=== PATIENT | female | born 1945 | race Caucasian/White ===

== ENCOUNTER → 2017-10-08 | Outpatient (CLI) | payer MEDICARE | LOC: M WHC 14:38 | DX: Z12.31 Encounter for screening mammogram for malignant neoplasm of breast (principal); Z01.419 Encounter for gynecological examination (general) (routine) without abnormal findings (principal); Z78.0 Asymptomatic menopausal state; Z92.29 Personal history of other drug therapy; Z92.89 Personal history of other medical treatment | CPT/HCPCS: 77067 ==

== ENCOUNTER → 2017-12-04 | Outpatient (REF) | payer MEDICARE ==
[2017-12-04 12:11] LABS: APPEARANCE, URINE CLEAR (CLEAR); BACTERIA, URINE AUTO NEGATIVE (NEGATIVE); BILIRUBIN, URINE AUTO NEGATIVE (NEGATIVE); BLOOD, URINE BLOOD NEGATIVE (NEGATIVE); COLOR, URINE YELLOW (YELLOW); GLUCOSE, URINE (UA) AUTO NEGATIVE (NEGATIVE); KETONE, URINE AUTO NEGATIVE (NEGATIVE); LEUKOCYTE ESTERASE, URINE AUTO 1+ (NEGATIVE); MUCUS, URINE SMALL (NEGATIVE); NITRITE, URINE AUTO NEGATIVE (NEGATIVE); PROTEIN, URINE AUTO NEGATIVE (NEGATIVE); RBC, URINE AUTO 4 /HPF (0-3); SPECIFIC GRAVITY URINE AUTO 1.023 (1.002-1.035); SQUAMOUS EPITHELIAL CELL UR AU 0 /HPF (0-6); UROBILINOGEN, URINE AUTO 0.2 mg/dL (0.0-2.0); WBC, URINE AUTO 8 /HPF (0-3)
[2017-12-04 12:37] LABS: ALBUMIN 3.4 GM/DL (3.2-5.2); ALBUMIN/GLOBULIN RATIO 1.21 (1.00-1.93); ALKALINE PHOSPHATASE 100 U/L (45-117); ALT/SGPT 21 U/L (12-78); ANION GAP 6 MEQ/L (8-16); AST/SGOT 14 U/L (7-37); BILIRUBIN,TOTAL 0.6 MG/DL (0.2-1.0); BLOOD UREA NITROGEN 12 MG/DL (7-18); CALCIUM LEVEL 8.2 MG/DL (8.8-10.2); CARBON DIOXIDE LEVEL 29 MEQ/L (21-32); CHLORIDE LEVEL 109 MEQ/L (98-107); CHOLESTEROL LEVEL 223 MG/DL (<200); CHOLESTEROL RISK RATIO 2.934 (<5); GLOMERULAR FILTRATION RATE > 60.0 (>39); GLUCOSE, FASTING 91 MG/DL (70-100); HDL CHOLESTEROL 76 MG/DL (>40); LDL CHOLESTEROL 134.6 MG/DL (<100); NON-HDL-C 147 MG/DL; SODIUM LEVEL 144 MEQ/L (136-145); TOTAL PROTEIN 6.2 GM/DL (6.4-8.2); TRIGLYCERIDES LEVEL 62 MG/DL (<150)
== END ==
LOC: M SFHCPLAZ 10:13
DX: E66.09 Other obesity due to excess calories (principal); Z13.1 Encounter for screening for diabetes mellitus; Z13.220 Encounter for screening for lipoid disorders; R30.0 Dysuria
CPT/HCPCS: 80053

== ENCOUNTER → 2018-01-07 | Outpatient (REF) | payer MEDICARE ==
[2018-01-07 12:27] LABS: APPEARANCE, URINE CLEAR (CLEAR); BACTERIA, URINE AUTO NEGATIVE (NEGATIVE); BILIRUBIN, URINE AUTO NEGATIVE (NEGATIVE); BLOOD, URINE BLOOD NEGATIVE (NEGATIVE); COLOR, URINE YELLOW (YELLOW); GLUCOSE, URINE (UA) AUTO NEGATIVE (NEGATIVE); KETONE, URINE AUTO NEGATIVE (NEGATIVE); LEUKOCYTE ESTERASE, URINE AUTO 2+ (NEGATIVE); NITRITE, URINE AUTO NEGATIVE (NEGATIVE); PROTEIN, URINE AUTO NEGATIVE (NEGATIVE); RBC, URINE AUTO 1 /HPF (0-3); SPECIFIC GRAVITY URINE AUTO 1.027 (1.002-1.035); SQUAMOUS EPITHELIAL CELL UR AU 1 /HPF (0-6); UROBILINOGEN, URINE AUTO 0.2 mg/dL (0.0-2.0); WBC, URINE AUTO 8 /HPF (0-3)
== END ==
LOC: M SFHCPLAZ 10:27
DX: R31.21 Asymptomatic microscopic hematuria (principal)
CPT/HCPCS: 81001

== ENCOUNTER → 2018-01-26 | Outpatient (REF) | payer MEDICARE ==
[2018-01-26 17:27] LABS: APPEARANCE, URINE CLOUDY (CLEAR); BACTERIA, URINE AUTO 2+ (NEGATIVE); BILIRUBIN, URINE AUTO NEGATIVE (NEGATIVE); BLOOD, URINE BLOOD NEGATIVE (NEGATIVE); COLOR, URINE YELLOW (YELLOW); GLUCOSE, URINE (UA) AUTO NEGATIVE (NEGATIVE); KETONE, URINE AUTO NEGATIVE (NEGATIVE); LEUKOCYTE ESTERASE, URINE AUTO 3+ (NEGATIVE); MUCUS, URINE SMALL (NEGATIVE); NITRITE, URINE AUTO NEGATIVE (NEGATIVE); PROTEIN, URINE AUTO NEGATIVE (NEGATIVE); RBC, URINE AUTO 6 /HPF (0-3); SQUAMOUS EPITHELIAL CELL UR AU 5 /HPF (0-6); UROBILINOGEN, URINE AUTO 0.2 mg/dL (0.0-2.0); WBC, URINE AUTO 105 /HPF (0-3)
== END ==
LOC: M SFHCPLAZ 15:43
DX: R35.0 Frequency of micturition (principal)
CPT/HCPCS: 81001

== ENCOUNTER → 2018-02-04 | Outpatient (CLI) | payer MEDICARE | LOC: M RAD 10:41 | DX: Z12.2 Encounter for screening for malignant neoplasm of respiratory organs (principal); Z87.891 Personal history of nicotine dependence | CPT/HCPCS: G0297 ==

== ENCOUNTER → 2018-03-17 | Outpatient (CLI) | payer MEDICARE | LOC: M WHC 12:02 | DX: M81.0 Age-related osteoporosis without current pathological fracture (principal) | CPT/HCPCS: 77080 ==

== ENCOUNTER → 2018-04-01 | Outpatient (REF) | payer MEDICARE | LOC: M LAB REF 13:18 | DX: L72.0 Epidermal cyst (principal) | CPT/HCPCS: 88304 ==

== ENCOUNTER → 2018-04-29 | Outpatient (REF) | payer MEDICARE | LOC: M SFHCPLAZ 12:35 | DX: D23.39 Other benign neoplasm of skin of other parts of face (principal) | CPT/HCPCS: 88305 ==

== ENCOUNTER 2018-09-14 07:55 | Day surgery (SDC) | payer MEDICARE ==
[~2018-09-14] VITALS: Ht 154.9 cm; Wt 88.5 kg
[~2018-09-14 07:55] MED LIST: ALEN35TA37 PO; ASPI81TA85 PO; ATOR1TAB21 PO; DITR5TAB PO; FLUO40CA PO; FOLI400T PO; LIDOCAINE 2% INJ 100 MG/5 ML SDV (FOR ANES.) As Ordered ONE; NS 1,000 ML IV ONE; PROPOFOL 200 MG/20 ML VIAL As Ordered ONE; TRAZ-160 PO; VITA200038 PO; VITA250L PO; VITA400C7 PO
--- NOTE | 2018-09-14 09:23 | ROOR ---
Patient Name: Shayla Valenzuela Procedure Date: 09/14/2018 9:01 AM Date of : 1945 Age: 73 Room: [facility] Gender: Female Note Status: Finalized Procedure: Colonoscopy Indications: High risk colon cancer surveillance: Personal history of colonic polyps, Last colonoscopy: July 2015 Providers: Ross ESARS MD Referring MD: Roya Black MD Requesting Provider: Medicines: Monitored Anesthesia Care Complications: No immediate complications. Procedure: Pre-Anesthesia Assessment: - The heart rate, respiratory rate, oxygen saturations, blood pressure, adequacy of pulmonary ventilation, and response to care were monitored throughout the procedure. The Colonoscope was introduced through the anus and advanced to the cecum, identified by appendiceal orifice and ileocecal valve. The colonoscopy was performed without difficulty. The patient tolerated the procedure well. The quality of the bowel preparation was good. Findings: The perianal and digital rectal examinations were normal. Multiple medium-mouthed diverticula with acute angulation was found in the sigmoid colon. Internal hemorrhoids were found during retroflexion. The hemorrhoids were moderate. The exam was otherwise without abnormality on direct and retroflexion views. Impression: - Diverticulosis in the sigmoid colon. - Internal hemorrhoids. - The colon was otherwise normal on direct and retroflexion views. - No specimens collected. Recommendation: - Repeat colonoscopy in 5 years for surveillance based on personal history of previous adenomatous polyps. Ross Sears MD Ross SEARS MD 09/14/2018 9:22:59 AM This report has been signed electronically. Number of Addenda: 0 Note Initiated On: 09/14/2018 9:01 AM Estimated Blood Loss: Estimated blood loss: none.
[2018-09-14 10:23] VITALS: BP 209/99
== END 2018-09-14 10:27 | disposition home or self-care (01) ==
LOC: M OPP 07:55
PROVIDERS: ATTEND Internal Medicine Gastroenterology
DX: K57.30 Diverticulosis of large intestine without perforation or abscess without bleeding (principal); K64.8 Other hemorrhoids; Z86.010 Personal history of colon polyps

== ENCOUNTER → 2018-12-02 | Outpatient (CLI) | payer MEDICARE ==
[~2018-12-02] MED LIST changes: -LIDOCAINE 2% INJ 100 MG/5 ML SDV (FOR ANES.) As Ordered ONE; -NS 1,000 ML IV ONE; -PROPOFOL 200 MG/20 ML VIAL As Ordered ONE
--- NOTE | 2018-12-02 15:55 | REPMRS ---
Patient History The patient states she had a clinical breast exam in 11/2018. No known family history of cancer. Reductions of both breasts, February 04, 2014. Took unspecified hormones for 4 years. 3D TOMOSYNTHESIS WAS PERFORMED. Digital Woman Screen Mammo: December 02, 2018 - Exam #: [id number] Bilateral MLO and CC view(s) were taken. CV view(s) were taken of the right breast. XCCL view(s) were taken of the left breast. Technologist: Mikaela Peralta, Technologist Prior study comparison: October 08, 2017, digital woman screen mammo performed at [facility]. August 28, 2016, digital woman screen mammo performed at [facility]. FINDINGS: There are scattered fibroglandular densities. There has been no change in the appearance of the mammogram from the prior studies. There is a mild amount of residual fibroglandular tissue which is fairly symmetric. There is no interval development of dominant mass, architectural distortion, or clustered microcalcification suggestive of malignancy. Assessment: BI-RADS/ACR category 1 mammogram. Negative Mammogram. Recommendation Routine screening mammogram in 1 year (for women over age 40). This mammogram was interpreted with the aid of an FDA-approved computer-aided dectection system. Electronically Signed By: Baron Yao MD 12/02/18 [id number]
== END ==
LOC: M WHC 14:38
PROVIDERS: ATTEND Nurse Practitioner Women's Health
DX: Z01.419 Encounter for gynecological examination (general) (routine) without abnormal findings (principal); Z12.31 Encounter for screening mammogram for malignant neoplasm of breast; Z92.29 Personal history of other drug therapy; Z98.890 Other specified postprocedural states
CPT/HCPCS: 77063; 77067; G0463

== ENCOUNTER → 2019-02-05 | Outpatient (REF) | payer MEDICARE ==
[~2019-02-05] MED LIST changes: -TRAZ-160 PO; +TRAZ-252 PO
[2019-02-05 12:06] LABS: ALBUMIN 3.7 GM/DL (3.2-5.2); ALT/SGPT 28 U/L (12-78); BILIRUBIN,TOTAL 0.8 MG/DL (0.2-1.0); BLOOD UREA NITROGEN 15 MG/DL (7-18); CARBON DIOXIDE LEVEL 28 MEQ/L (21-32); CHLORIDE LEVEL 106 MEQ/L (98-107); CHOLESTEROL LEVEL 167 MG/DL (<200); CHOLESTEROL RISK RATIO 2.226 (<5); CREATININE FOR GFR 0.81 MG/DL (0.55-1.30); GLOMERULAR FILTRATION RATE > 60.0 (>39); GLUCOSE, FASTING 88 MG/DL (70-100); HDL CHOLESTEROL 75 MG/DL (>40); LDL CHOLESTEROL 79 MG/DL (<100); NON-HDL-C 92 MG/DL; POTASSIUM SERUM 4.4 MEQ/L (3.5-5.1); SODIUM LEVEL 142 MEQ/L (136-145); TOTAL PROTEIN 6.5 GM/DL (6.4-8.2); TRIGLYCERIDES LEVEL 63 MG/DL (<150)
[2019-02-05 12:37] LABS: VITAMIN B12 LEVEL 1059 PG/ML (247-911)
== END ==
LOC: M SFHCPLAZ 10:33
PROVIDERS: ATTEND Family Medicine
DX: E78.2 Mixed hyperlipidemia (principal); E66.09 Other obesity due to excess calories; E55.9 Vitamin D deficiency, unspecified; E53.8 Deficiency of other specified B group vitamins

== ENCOUNTER → 2019-06-01 | Outpatient (REF) | payer MEDICARE ==
[2019-06-01 20:41] LABS: APPEARANCE, URINE HAZY (CLEAR); BACTERIA, URINE AUTO NEGATIVE (NEGATIVE); BILIRUBIN, URINE AUTO NEGATIVE (NEGATIVE); BLOOD, URINE BLOOD 1+ (NEGATIVE); COLOR, URINE YELLOW (YELLOW); GLUCOSE, URINE (UA) AUTO NEGATIVE (NEGATIVE); KETONE, URINE AUTO NEGATIVE (NEGATIVE); LEUKOCYTE ESTERASE, URINE AUTO 2+ (NEGATIVE); MUCUS, URINE SMALL (NEGATIVE); NITRITE, URINE AUTO NEGATIVE (NEGATIVE); PROTEIN, URINE AUTO 1+ mg/dL (NEGATIVE); RBC, URINE AUTO 8 /HPF (0-3); SPECIFIC GRAVITY URINE AUTO 1.013 (1.002-1.035); SQUAMOUS EPITHELIAL CELL UR AU 1 /HPF (0-6); UROBILINOGEN, URINE AUTO 0.2 mg/dL (0.0-2.0); WBC, URINE AUTO 94 /HPF (0-3)
== END ==
LOC: M SFHCPLAZ 19:46
PROVIDERS: ATTEND Family Medicine
DX: N30.01 Acute cystitis with hematuria (principal)
CPT/HCPCS: 81001; 81002; G0463

== ENCOUNTER → 2019-06-08 | Outpatient (CLI) | payer MEDICARE ==
--- NOTE | 2019-06-08 13:20 | REP ---
REASON: Tobacco abuse. COMPARISON: 02/04/2018. As per the protocol only lung window images were sent to the read station for interpretation. There are no new abnormal nodules, mass, or opacities. Subcarinal and right hilar calcifications along with lung granulomatous calcifications are again noted status quo. These are incidental. Grossly, the mediastinum, pulmonary jose manuel, imaged upper abdomen, and imaged osseous structures are unchanged. There are no pleural or pericardial effusions. IMPRESSION: Stable CT lung screening exam as described above. Lung-RADS category 1. Yearly CT screening is recommended as per the revised Fleischner's Society criteria. Electronically Signed by Tristian Rodriguez DO 06/08/2019 02:38 P
== END ==
LOC: M RAD 10:49
PROVIDERS: ATTEND Family Medicine
DX: F17.211 Nicotine dependence, cigarettes, in remission (principal)

== ENCOUNTER → 2020-02-24 | Outpatient (CLI) | payer MEDICARE ==
[~2020-02-24] MED LIST changes: -ALEN35TA37 PO; +ALEN35TA54 PO; -ASPI81TA85 PO; +ASPI81TA86 PO
--- NOTE | 2020-03-06 08:34 | REPMRS ---
Patient History The patient states she had a clinical breast exam in February 2020. No known family history of cancer. Reductions of both breasts, February 04, 2014. Took unspecified hormones for 4 years. Digital Woman Screen Mammo: February 24, 2020 - Exam #: [id number] Bilateral CC and MLO view(s) were taken. Technologist: Christine Lawson Technologist Prior study comparison: December 02, 2018, bilateral digital woman screen mammo performed at [facility]. October 08, 2017, digital woman screen mammo performed at [facility]. August 28, 2016, digital woman screen mammo performed at [facility]. FINDINGS: There are scattered fibroglandular densities. The Volpara volumetric breast density category is:B. There are scattered benign calcifications again noted on the left . There has been no change in the appearance of the mammogram from the prior studies. There is a mild amount of scattered fibroglandular density which is fairly symmetric. There is no interval development of dominant mass, architectural distortion, or grouped microcalcification suggestive of malignancy. 3-D tomosynthesis shows no additional findings. Assessment: BI-RADS/ACR category 2 mammogram. Benign Findings. Recommendation Routine screening mammogram of both breasts in 1 year (for women over age 40). This patient's Lifetime Breast Cancer Risk is estimated at 2.8 %. This mammogram was interpreted with the aid of an FDA-approved computer-aided dectection system. Electronically Signed By: Aleksey Vidal MD 03/06/20 0833
== END ==
LOC: M WHC 11:12
PROVIDERS: ATTEND Nurse Practitioner Women's Health
DX: Z12.31 Encounter for screening mammogram for malignant neoplasm of breast (principal); Z92.29 Personal history of other drug therapy; R92.1 Mammographic calcification found on diagnostic imaging of breast
CPT/HCPCS: 77063; 77067; G0463

== ENCOUNTER → 2020-07-25 | Outpatient (CLI) | payer MEDICARE ==
--- NOTE | 2020-07-25 16:33 | REP ---
INDICATION: H/O NICOTINE DEPENDENCE. COMPARISON: Multiple the latest 06/08/2019 TECHNIQUE: Axial noncontrast images from the thoracic inlet to the upper abdomen using low-dose lung screening technique (LDCT). As per the protocol only lung window images were sent to the read station for interpretation. FINDINGS: There are no new abnormal nodules, masses, or opacities. There is an incidental calcified granuloma in the left lower lobe. There is mild cylindrical bronchiectasis. Grossly the mediastinum and pulmonary jose manuel are unchanged. Grossly the imaged upper abdomen and imaged osseous structures are unchanged. IMPRESSION: Stable lung rads category 1 exam <Electronically signed by Tristian Rodriguez > 07/25/20 [id number]
== END ==
LOC: M RAD 12:49
PROVIDERS: ATTEND Family Medicine
DX: Z12.2 Encounter for screening for malignant neoplasm of respiratory organs (principal); F17.211 Nicotine dependence, cigarettes, in remission

== ENCOUNTER → 2020-12-26 | Outpatient (CLI) | payer MEDICARE ==
[~2020-12-26] MED LIST changes: -FOLI400T PO; +FOLI400T13 PO
--- NOTE | 2020-12-26 10:28 | REP ---
INDICATION: LLQ ABD PAIN ? HERNIA ABD WALL COMPARISON: None. TECHNIQUE: Real time walker scale ultrasound examination using curved array transducer. FINDINGS: Directed ultrasound examination overlying the left lower quadrant at the point of maximal tenderness demonstrates normal subcutaneous tissue. No fluid collection, significant abnormality or defect identified. No evidence for hernia. There is a small 12 x 7 x 7 mm ovoid echogenic focus in the subcutaneous tissue likely representing small benign lipoma. IMPRESSION: Essentially unremarkable examination. Possible small benign lipoma in the subcutaneous fat. No hernia <Electronically signed by Jono Owen > 12/26/20 1023
== END ==
LOC: M RAD 09:59
PROVIDERS: ATTEND Family Medicine
DX: R10.9 Unspecified abdominal pain (principal)

== ENCOUNTER → 2021-02-25 | Outpatient (CLI) | payer MEDICARE ==
[~2021-02-25] MED LIST changes: +D31000TA2 PO; +OMEP1CAP73 PO; +VITA400C53 PO
== END ==
LOC: M LABSMTC 09:08
PROVIDERS: ATTEND Anesthesiology
DX: Z01.812 Encounter for preprocedural laboratory examination (principal); Z20.822 Contact with and (suspected) exposure to COVID-19

== ENCOUNTER → 2021-02-26 | Outpatient (CLI) | payer MEDICARE ==
--- NOTE | 2021-02-26 12:23 | REPMRS ---
Patient History The patient states she had a clinical breast exam in February 2021. Patient is postmenopausal. No known family history of cancer. Reductions of both breasts, February 04, 2014. Reductions of both breasts. Took unspecified hormones for 4 years. Patient states no breast complaints today. Patient has signed MRS History Sheet. Digital Woman Screen Mammo: February 26, 2021 - Exam #: [id number] Bilateral MLO and CC view(s) were taken. CV view(s) were taken of the left breast. Technologist: Mikaela Peralta, Technologist Prior study comparison: February 24, 2020, bilateral digital woman screen mammo performed at [facility]. December 02, 2018, bilateral digital woman screen mammo performed at [facility]. October 08, 2017, digital woman screen mammo performed at [facility]. FINDINGS: The breast tissue is almost entirely fat. The Volpara volumetric breast density category is: A. There has been no change in the appearance of the mammogram from the prior studies. There is no interval development of dominant mass, architectural distortion, or grouped microcalcification typical of malignancy. 3-D tomosynthesis shows no additional findings. Assessment: BI-RADS/ACR category 1 mammogram. Negative Mammogram. Recommendation Routine screening mammogram of both breasts in 1 year (for women over age 40). This patient's [facility] Lifetime Breast Cancer RIsk is estimated at 2.6 %. This mammogram was interpreted with the aid of an FDA-approved computer-aided dectection system. Electronically Signed By: Aleksey Vidal MD 02/26/21 [id number]
== END ==
LOC: M WHC 10:41
PROVIDERS: ATTEND Nurse Practitioner Women's Health
DX: Z12.31 Encounter for screening mammogram for malignant neoplasm of breast (principal); Z78.0 Asymptomatic menopausal state; Z92.29 Personal history of other drug therapy; Z98.890 Other specified postprocedural states
CPT/HCPCS: 77063; 77067; G0463

== ENCOUNTER 2021-03-02 13:50 | Day surgery (SDC) | payer MEDICARE ==
[~2021-03-02] VITALS: Ht 157.5 cm; Wt 97.1 kg
[~2021-03-02 13:50] MED LIST changes: +NS 1,000 ML IV ONE
[2021-03-02] MEDS ORDERED: LIDOCAINE 2% 100MG/5ML SDV (FOR ANES.) As Ordered ONE (14:14)
[2021-03-02] MEDS ORDERED: propofoL 200 MG/20 ML VIAL As Ordered ONE (14:14)
[2021-03-02] MEDS ORDERED: fentaNYL 100 MCG/2 ML INJECTION (J3010) As Ordered ONE (14:14)
[2021-03-02] MEDS ORDERED: LABETALOL 100MG/20ML VIAL As Ordered ONE (15:13)
--- NOTE | 2021-03-02 15:26 | ROOR ---
Patient Name: Shayla Valenzuela Procedure Date: 03/02/2021 3:02 PM Date of : 1945 Age: 75 Room: [facility] Gender: Female Note Status: Finalized Procedure: Upper GI endoscopy Indications: Dysphagia, Heartburn, Abnormal UGI series Providers: Ross Sears MD Referring MD: Roya Black MD Requesting Provider: Medicines: Monitored Anesthesia Care Complications: No immediate complications. Procedure: Pre-Anesthesia Assessment: - The heart rate, respiratory rate, oxygen saturations, blood pressure, adequacy of pulmonary ventilation, and response to care were monitored throughout the procedure. The Endoscope was introduced through the mouth, and advanced to the second part of duodenum. The upper GI endoscopy was accomplished without difficulty. The patient tolerated the procedure well. Findings: A widely patent and non-obstructing Schatzki ring was found at the gastroesophageal junction. A TTS dilator was passed through the scope. Dilation with an 18-19-20 mm balloon dilator was performed to 20 mm. The dilation site was examined and showed no change. Biopsies were taken with a cold forceps for histology. No endoscopic abnormality was evident in the esophagus to explain the patient's complaint of dysphagia. It was decided, however, to proceed with dilation at the cricopharyngeus, of the upper third of the esophagus and of the lower third of the esophagus. A TTS dilator was passed through the scope. Dilation with an 18-19-20 mm balloon dilator was performed to 18 mm. The dilation site was examined and showed no change. Small Hiatal Hernia. The entire examined stomach was normal. The examined duodenum was normal. Impression: - No definite endoscopic esophageal abnormality to explain patient's dysphagia/esophagram appearance of a cervical esophageal web, however it was decided to proceed with dilation of proximal esophagus. Esophagus dilated proximally to 18 mm. - Widely patent and non-obstructing Schatzki ring of dubious significance in the distal esophagus. Esophagus dilated distally to 20 mm. Biopsied for histology and to fracture of ring. - Small Hiatal Hernia. - Normal stomach. - Normal examined duodenum. Recommendation: - Continue present medications. - Observe patient's clinical course. - I anticipate no further need for intervention. Procedure Code(s): --- Professional --- 80706, Esophagogastroduodenoscopy, flexible, transoral; with transendoscopic balloon dilation of esophagus (less than 30 mm diameter) 22524, 59, Esophagogastroduodenoscopy, flexible, transoral; with biopsy, single or multiple Diagnosis Code(s): --- Professional --- R93.3, Abnormal findings on diagnostic imaging of other parts of digestive tract R12, Heartburn K22.2, Esophageal obstruction R13.10, Dysphagia, unspecified CPT copyright 2019 [employer]. All rights reserved. The codes documented in this report are preliminary and upon edge polisher review may be revised to meet current compliance requirements. Ross Sears MD Ross eSars MD 03/02/2021 3:26:04 PM Electronically signed by Ross Sears MD Number of Addenda: 0 Note Initiated On: 03/02/2021 3:02 PM Estimated Blood Loss: Estimated blood loss: none.
[2021-03-02 15:47] VITALS: BP 164/80
== END 2021-03-02 15:48 | disposition home or self-care (01) ==
LOC: M OPP 13:50
PROVIDERS: ATTEND Internal Medicine Gastroenterology
DX: K22.2 Esophageal obstruction (principal); K22.719 Barrett's esophagus with dysplasia, unspecified; R12 Heartburn; R93.3 Abnormal findings on diagnostic imaging of other parts of digestive tract; K21.9 Gastro-esophageal reflux disease without esophagitis; Z79.899 Other long term (current) drug therapy; Z87.891 Personal history of nicotine dependence
CPT/HCPCS: 43239; 43249; 88305; J3010

== ENCOUNTER → 2021-06-11 | Outpatient (CLI) | payer MEDICARE ==
[~2021-06-11] MED LIST changes: -ALEN35TA54 PO; +ALEN35TA56 PO; -NS 1,000 ML IV ONE
[2021-06-11 15:29] LABS: APPEARANCE, URINE CLEAR (CLEAR); BACTERIA, URINE AUTO NEGATIVE (NEGATIVE); BILIRUBIN, URINE AUTO NEGATIVE (NEGATIVE); BLOOD, URINE BLOOD NEGATIVE (NEGATIVE); COLOR, URINE YELLOW (YELLOW); GLUCOSE, URINE (UA) AUTO NEGATIVE (NEGATIVE); KETONE, URINE AUTO NEGATIVE (NEGATIVE); LEUKOCYTE ESTERASE, URINE AUTO NEGATIVE (NEGATIVE); NITRITE, URINE AUTO NEGATIVE (NEGATIVE); PROTEIN, URINE AUTO NEGATIVE (NEGATIVE); RBC, URINE AUTO 0 /HPF (0-3); SPECIFIC GRAVITY URINE AUTO 1.009 (1.002-1.035); SQUAMOUS EPITHELIAL CELL UR AU 1 /HPF (0-6); UROBILINOGEN, URINE AUTO 0.2 mg/dL (0.0-2.0); WBC, URINE AUTO 1 /HPF (0-3)
[2021-06-11 16:01] LABS: ALBUMIN 3.9 GM/DL (3.2-5.2); ALT/SGPT 27 U/L (12-78); BILIRUBIN,TOTAL 0.9 MG/DL (0.2-1.0); BLOOD UREA NITROGEN 14 MG/DL (7-18); CALCIUM LEVEL 9.5 MG/DL (8.8-10.2); CARBON DIOXIDE LEVEL 31 MEQ/L (21-32); CHLORIDE LEVEL 102 MEQ/L (98-107); CREATININE FOR GFR 0.92 MG/DL (0.55-1.30); CREATININE, URINE 86.3 MG/DL; GLOMERULAR FILTRATION RATE > 60.0 (>39); GLUCOSE, FASTING 94 MG/DL (70-100); MALB URINE SIEMENS 5.9 MG/L; MAU/CREAT RATIO 6.8 MCG/MG (0.0-30.0); POTASSIUM SERUM 4.1 MEQ/L (3.5-5.1); SODIUM LEVEL 138 MEQ/L (136-145); TOTAL PROTEIN 7.1 GM/DL (6.4-8.2)
== END ==
LOC: M PLALAB 12:22
PROVIDERS: ATTEND Family Medicine
DX: I10 Essential (primary) hypertension (principal)
CPT/HCPCS: 36415; 80053; 81001; 82043; 84443; G0463

== ENCOUNTER → 2021-06-20 | Outpatient (CLI) | payer MEDICARE ==
[~2021-06-20] MED LIST changes: +ISOVUE-370 76% 100ML VIAL As Ordered ONE
--- NOTE | 2021-06-20 10:40 | REP ---
INDICATION: RENAL CYST. COMPARISON: None TECHNIQUE: Axial precontrast, contrast-enhanced and delayed images of the abdomen using 100 cc Isovue 370 intravenous contrast material with coronal and sagittal reformations. This CT examination was performed using the following dose reduction techniques: Automated exposure control, adjustment of mA and/or kv according to the patient's size, and the use of iterative reconstruction technique. FINDINGS: Kidneys demonstrate simple benign bilateral peripelvic cysts (left greater than right) along with 5 mm left posterior midpole cortical cyst. No urinary tract calcifications, perinephric stranding, hydronephrosis or renal mass lesion identified. Liver includes 1.2 cm left and 9 mm right hepatic cysts. Spleen, pancreas, gallbladder, and bilateral adrenal glands are normal. Visualized enteric system demonstrates small hiatal hernia at the gastroesophageal junction. Atherosclerotic changes to the aorta and vasculature noted without aneurysm. No ascites. No free air. No obvious adenopathy. Skeletal structures demonstrate scoliosis and degenerative changes. Lung bases are clear. IMPRESSION: 1. Benign appearing bilateral peripelvic renal cysts (left greater than right). No further upper urinary tract pathology appreciated. 2. Hiatal hernia. <Electronically signed by Jono Owen > 06/20/21 1037
== END ==
LOC: M RAD 09:38
PROVIDERS: ATTEND Family Medicine
DX: N28.1 Cyst of kidney, acquired (principal)
CPT/HCPCS: 74170; Q9967

== ENCOUNTER → 2021-09-14 | Outpatient (CLI) | payer MEDICARE ==
[~2021-09-14] MED LIST changes: -ISOVUE-370 76% 100ML VIAL As Ordered ONE
== END ==
LOC: M SLEEP 20:00
PROVIDERS: ATTEND Nurse Practitioner Family
DX: G47.33 Obstructive sleep apnea (adult) (pediatric) (principal)

== ENCOUNTER → 2021-10-09 | Outpatient (CLI) | payer MEDICARE | LOC: M RAD 15:28 | PROVIDERS: ATTEND Family Medicine | DX: Z12.2 Encounter for screening for malignant neoplasm of respiratory organs (principal) ==

== ENCOUNTER → 2021-11-08 | Outpatient (CLI) | payer MEDICARE ==
[~2021-11-08] MED LIST changes: -D31000TA2 PO; +VITA100093 PO
== END ==
LOC: M SLEEP 20:00
PROVIDERS: ATTEND Physician Assistant
DX: G47.33 Obstructive sleep apnea (adult) (pediatric) (principal)

== ENCOUNTER → 2021-11-12 | Outpatient (CLI) | payer MEDICARE ==
[2021-11-12 16:13] LABS: ALBUMIN 3.5 GM/DL (3.2-5.2); ALT/SGPT 22 U/L (12-78); BILIRUBIN,TOTAL 0.8 MG/DL (0.2-1.0); BLOOD UREA NITROGEN 17 MG/DL (7-18); CARBON DIOXIDE LEVEL 30 MEQ/L (21-32); CHLORIDE LEVEL 104 MEQ/L (98-107); CHOLESTEROL LEVEL 179 MG/DL (<200); CHOLESTEROL RISK RATIO 2.386 (<5); CREATININE FOR GFR 0.81 MG/DL (0.55-1.30); GLOMERULAR FILTRATION RATE > 60.0 (>39); GLUCOSE, FASTING 87 MG/DL (70-100); HDL CHOLESTEROL 75 MG/DL (>40); LDL CHOLESTEROL 89 MG/DL (<100); NON-HDL-C 104 MG/DL; POTASSIUM SERUM 3.8 MEQ/L (3.5-5.1); SODIUM LEVEL 140 MEQ/L (136-145); TOTAL PROTEIN 6.5 GM/DL (6.4-8.2); TRIGLYCERIDES LEVEL 75 MG/DL (<150)
[2021-11-12 17:15] LABS: VITAMIN B12 LEVEL 625 PG/ML (247-911)
[2021-11-13 12:27] LABS: TOTAL 25(OH) VITAMIN D 38.5 NG/ML (30.0-100.0)
== END ==
LOC: M PLALAB 12:32
PROVIDERS: ATTEND Family Medicine
DX: E78.2 Mixed hyperlipidemia (principal); I10 Essential (primary) hypertension; E55.9 Vitamin D deficiency, unspecified; E53.8 Deficiency of other specified B group vitamins

== ENCOUNTER → 2021-11-20 | Outpatient (CLI) | payer MEDICARE | LOC: M SOG 10:39 | PROVIDERS: ATTEND Orthopaedic Surgery | DX: M25.519 Pain in unspecified shoulder (principal) ==

== ENCOUNTER → 2021-12-13 | Outpatient (CLI) | payer MEDICARE | LOC: M PLAIMG 14:15 | PROVIDERS: ATTEND Orthopaedic Surgery | DX: M67.813 Other specified disorders of tendon, right shoulder (principal); M75.41 Impingement syndrome of right shoulder ==

== ENCOUNTER → 2022-04-08 | Outpatient (CLI) | payer MEDICARE ==
[~2022-04-08] MED LIST changes: +ISOVUE-300 61% 5ML SYRINGE As Ordered ONE; +LIDOCAINE 1% MDV 20ML VIAL As Ordered ONE; +PROHANCE 279.3MG/ML 5ML VIAL As Ordered ONE
== END ==
LOC: M RADPRO 06:42
PROVIDERS: ATTEND Orthopaedic Surgery
DX: M75.111 Incomplete rotator cuff tear or rupture of right shoulder, not specified as traumatic (principal)
CPT/HCPCS: 23350; 73223; 77002; A9576; Q9967

== ENCOUNTER → 2022-06-13 | Outpatient (CLI) | payer MEDICARE ==
[~2022-06-13] MED LIST changes: -ISOVUE-300 61% 5ML SYRINGE As Ordered ONE; -LIDOCAINE 1% MDV 20ML VIAL As Ordered ONE; -PROHANCE 279.3MG/ML 5ML VIAL As Ordered ONE
== END ==
LOC: M WHC 13:05
PROVIDERS: ATTEND Physician Assistant
DX: Z12.31 Encounter for screening mammogram for malignant neoplasm of breast (principal)

== ENCOUNTER → 2022-09-04 | Outpatient (REF) | payer MEDICARE | LOC: M SFHCPLAZ 13:01 | PROVIDERS: ATTEND Physician Assistant | DX: R30.0 Dysuria (principal) ==

== ENCOUNTER → 2022-10-10 | Outpatient (CLI) | payer MEDICARE | LOC: M RAD 10:21 | PROVIDERS: ATTEND Physician Assistant | DX: Z12.2 Encounter for screening for malignant neoplasm of respiratory organs (principal); F17.211 Nicotine dependence, cigarettes, in remission ==

== ENCOUNTER → 2022-11-13 | Outpatient (CLI) | payer MEDICARE | LOC: M PLAIMG 14:49 | PROVIDERS: ATTEND Physician Assistant | DX: M19.072 Primary osteoarthritis, left ankle and foot (principal); M20.12 Hallux valgus (acquired), left foot ==

== ENCOUNTER → 2023-05-19 | Outpatient (CLI) | payer MEDICARE ==
[2023-05-19 14:20] LABS: APPEARANCE, URINE CLEAR (CLEAR); BACTERIA, URINE AUTO NEGATIVE (NEGATIVE); BASO # 0.1 10^3/uL (0.0-0.2); BASO % 1.3 % (0.0-1.0); BILIRUBIN, URINE AUTO NEGATIVE (NEGATIVE); BLOOD, URINE BLOOD NEGATIVE (NEGATIVE); COLOR, URINE YELLOW (YELLOW); EOS # 0.2 10^3/uL (0.0-0.5); EOS % 2.5 % (0.0-3.0); GLUCOSE, URINE (UA) AUTO NEGATIVE (NEGATIVE); HEMATOCRIT 40.4 % (36.0-47.0); HEMOGLOBIN 12.9 g/dl (12.0-15.5); KETONE, URINE AUTO NEGATIVE (NEGATIVE); LEUKOCYTE ESTERASE, URINE AUTO NEGATIVE (NEGATIVE); LYMPH # 1.6 10^3/uL (1.5-5.0); MEAN CORPUSCULAR HEMOGLOBIN 29.5 pg (27.0-33.0); MEAN CORPUSCULAR HGB CONC 31.9 g/dl (32.0-36.5); MEAN CORPUSCULAR VOLUME 92.2 fl (80.0-96.0); MONO # 0.8 10^3/uL (0.0-0.8); MONO % 12.7 % (2.0-8.0); MUCUS, URINE SMALL (NEGATIVE); NEUTROPHILS # 3.7 10^3/uL (1.5-8.5); NEUTROPHILS % 58.2 % (36.0-66.0); NITRITE, URINE AUTO NEGATIVE (NEGATIVE); PLATELET COUNT, AUTOMATED 322 10^3/uL (150-450); PROTEIN, URINE AUTO NEGATIVE (NEGATIVE); RBC, URINE AUTO 0 /HPF (0-3); RED BLOOD COUNT 4.38 10^6/uL (4.00-5.40); SPECIFIC GRAVITY URINE AUTO 1.019 (1.002-1.035); SQUAMOUS EPITHELIAL CELL UR AU 2 /HPF (0-6); WBC, URINE AUTO 0 /HPF (0-3); WHITE BLOOD COUNT 6.3 10^3/uL (4.0-10.0)
[2023-05-19 14:41] LABS: HEMOGLOBIN A1c 5.6 % (4.0-6.0)
[2023-05-19 14:42] LABS: TOTAL 25(OH) VITAMIN D 37.6 NG/ML (20.0-100.0); VITAMIN B12 LEVEL 1725 PG/ML (211-911)
[2023-05-19 14:43] LABS: THYROID STIMULATING HORMONE 1.805 uIU/ML (0.55-4.78)
[2023-05-19 14:44] LABS: ALBUMIN 3.5 G/DL (3.2-5.2); ALKALINE PHOSPHATASE 128 U/L (46-116); ALT/SGPT 20 U/L (7.0-40); AST/SGOT 15 U/L (<34); BILIRUBIN,TOTAL 0.8 MG/DL (0.3-1.2); BLOOD UREA NITROGEN 20 MG/DL (9-23); CALCIUM LEVEL 9.1 MG/DL (8.3-10.6); CARBON DIOXIDE LEVEL 31 MMOL/L (20-31); CHLORIDE LEVEL 103 MMOL/L (98-107); CHOLESTEROL LEVEL 179 MG/DL (<200); CHOLESTEROL RISK RATIO 2.17 (<5); CREATININE FOR GFR 0.86 MG/DL (0.55-1.30); GLOMERULAR FILTRATION RATE > 60.0 (>39); GLUCOSE, FASTING 83 MG/DL (74-106); HDL CHOLESTEROL 82.2 MG/DL (>40); LDL CHOLESTEROL 84.2 MG/DL (<100); NON-HDL-C 96.8 MG/DL; POTASSIUM SERUM 4.6 MMOL/L (3.5-5.1); SODIUM LEVEL 141 MMOL/L (136-145); TOTAL PROTEIN 6.3 G/DL (5.7-8.2); TRIGLYCERIDES LEVEL 63 MG/DL (<150)
[2023-05-19 14:45] LABS: FREE T4 0.96 NG/DL (0.89-1.76)
== END ==
LOC: M PLALAB 10:33
PROVIDERS: ATTEND Physician Assistant
DX: E55.9 Vitamin D deficiency, unspecified (principal); E07.9 Disorder of thyroid, unspecified; E78.00 Pure hypercholesterolemia, unspecified

== ENCOUNTER → 2023-06-12 | Outpatient (CLI) | payer MEDICARE | LOC: M WHC 11:58 | PROVIDERS: ATTEND Physician Assistant | DX: Z12.31 Encounter for screening mammogram for malignant neoplasm of breast (principal); M81.0 Age-related osteoporosis without current pathological fracture ==

== ENCOUNTER → 2023-10-01 | Outpatient (REF) | payer MEDICARE | LOC: M SFHCPLAZ 13:25 | PROVIDERS: ATTEND Student in an Organized Health Care Education/Training Program | DX: N39.0 Urinary tract infection, site not specified (principal) ==

== ENCOUNTER → 2024-03-04 | Outpatient (CLI) | payer MEDICARE | LOC: M RAD 15:30 | PROVIDERS: ATTEND Physician Assistant | DX: Z87.891 Personal history of nicotine dependence (principal) ==

== ENCOUNTER → 2024-04-15 | Outpatient (CLI) | payer MEDICARE | LOC: M RAD 09:42 | PROVIDERS: ATTEND Physician Assistant | DX: F17.211 Nicotine dependence, cigarettes, in remission (principal); Z53.9 Procedure and treatment not carried out, unspecified reason ==

== ENCOUNTER → 2024-05-12 | Outpatient (CLI) | payer MEDICARE | LOC: M PLAIMG 14:55 | PROVIDERS: ATTEND Physician Assistant | DX: M25.562 Pain in left knee (principal) ==

== ENCOUNTER → 2024-05-26 | Outpatient (CLI) | payer MEDICARE ==
[2024-05-26 13:35] LABS: BASO # 0.1 10^3/uL (0.0-0.2); BASO % 1.3 % (0.0-1.0); EOS # 0.1 10^3/uL (0.0-0.5); EOS % 2.2 % (0.0-3.0); HEMATOCRIT 36.5 % (36.0-47.0); HEMOGLOBIN 11.9 g/dl (12.0-15.5); LYMPH # 1.8 10^3/uL (1.5-5.0); LYMPH % 31.6 % (24.0-44.0); MEAN CORPUSCULAR HEMOGLOBIN 29.4 pg (27.0-33.0); MEAN CORPUSCULAR HGB CONC 32.6 g/dl (32.0-36.5); MEAN CORPUSCULAR VOLUME 90.1 fl (80.0-96.0); MONO # 0.8 10^3/uL (0.0-0.8); MONO % 13.6 % (2.0-8.0); NEUTROPHILS # 2.8 10^3/uL (1.5-8.5); NEUTROPHILS % 51.1 % (36.0-66.0); PLATELET COUNT, AUTOMATED 289 10^3/uL (150-450); RED BLOOD COUNT 4.05 10^6/uL (4.00-5.40); WHITE BLOOD COUNT 5.5 10^3/uL (4.0-10.0)
[2024-05-26 13:46] LABS: ERYTHROCYTE SEDIMENTATION RATE 29 mm/hr (0-30)
[2024-05-26 14:06] LABS: ALBUMIN 3.4 G/DL (3.2-5.2); ALKALINE PHOSPHATASE 125 U/L (46-116); ALT/SGPT 16 U/L (7.0-40); AST/SGOT 12 U/L (<34); BILIRUBIN,TOTAL 0.7 MG/DL (0.3-1.2); BLOOD UREA NITROGEN 16 MG/DL (9-23); CALCIUM LEVEL 8.7 MG/DL (8.3-10.6); CARBON DIOXIDE LEVEL 29 MMOL/L (20-31); CHLORIDE LEVEL 107 MMOL/L (98-107); CREATININE FOR GFR 0.84 MG/DL (0.55-1.30); GLOMERULAR FILTRATION RATE > 60.0 (>39); GLUCOSE, FASTING 88 MG/DL (74-106); POTASSIUM SERUM 4.1 MMOL/L (3.5-5.1); SODIUM LEVEL 141 MMOL/L (136-145); TOTAL PROTEIN 6.1 G/DL (5.7-8.2)
== END ==
LOC: M PLALAB 11:09
PROVIDERS: ATTEND Physician Assistant
DX: R79.82 Elevated C-reactive protein (CRP) (principal)

== ENCOUNTER → 2024-07-01 | Outpatient (CLI) | payer MEDICARE | LOC: M PLAIMG 12:17 | PROVIDERS: ATTEND Physician Assistant | DX: M25.562 Pain in left knee (principal) ==

== ENCOUNTER → 2024-07-16 | Outpatient (CLI) | payer MEDICARE | LOC: M RAD 09:23 | PROVIDERS: ATTEND Physician Assistant | DX: K76.9 Liver disease, unspecified (principal) ==

== ENCOUNTER → 2025-05-10 | Outpatient (REF) | payer MEDICARE | LOC: M SFHCPLAZ 13:28 | PROVIDERS: ATTEND Family Medicine | DX: B34.9 Viral infection, unspecified (principal) ==

== ENCOUNTER → 2025-06-08 | Outpatient (REF) | payer MEDICARE ==
[2025-06-08 15:18] LABS: BASO # 0.1 10^3/uL (0.0-0.2); BASO % 1.1 % (0.0-1.0); EOS # 0.1 10^3/uL (0.0-0.5); EOS % 2.3 % (0.0-3.0); LYMPH # 1.7 10^3/uL (1.5-5.0); LYMPH % 29.4 % (24.0-44.0); MONO # 0.7 10^3/uL (0.0-0.8); MONO % 12.0 % (2.0-8.0); NEUTROPHILS # 3.1 10^3/uL (1.5-8.5); NEUTROPHILS % 55.0 % (36.0-66.0); PLATELET COUNT, AUTOMATED 248 10^3/uL (150-450)
[2025-06-08 15:33] LABS: ESTIMATED AVERAGE GLUCOSE 111.0 MG/DL (60-110)
[2025-06-08 15:54] LABS: LDH LACTATE DEHYDROGENASE 165.0 U/L (120-246)
[2025-06-08 15:55] LABS: ALT/SGPT 21.0 U/L (7.0-40); AST/SGOT 29.0 U/L (<34); CALCIUM LEVEL 9.0 MG/DL (8.3-10.6); CARBON DIOXIDE LEVEL 28.0 MMOL/L (20-31); CHLORIDE LEVEL 103.0 MMOL/L (98-107); CHOLESTEROL LEVEL 179.0 MG/DL (<200); CHOLESTEROL RISK RATIO 2.35 (<5); CREATININE FOR GFR 0.84 MG/DL (0.55-1.30); FREE T4 1.12 NG/DL (0.89-1.76); GLOMERULAR FILTRATION RATE 71.1 (>39); LDL CHOLESTEROL 80.3 MG/DL (<100); NON-HDL-C 102.9 MG/DL; POTASSIUM SERUM 4.7 MMOL/L (3.5-5.1); SODIUM LEVEL 140.0 MMOL/L (136-145); TRIGLYCERIDES LEVEL 113.0 MG/DL (<150)
== END ==
LOC: M SFHCPLAZ 09:24
PROVIDERS: ATTEND Family Medicine
DX: R61 Generalized hyperhidrosis (principal); Z79.899 Other long term (current) drug therapy

== ENCOUNTER → 2025-06-15 | Outpatient (REF) | payer MEDICARE | LOC: M SFHCPLAZ 16:41 | PROVIDERS: ATTEND Family Medicine | DX: Z53.9 Procedure and treatment not carried out, unspecified reason (principal) ==